=== PATIENT | male | born 1965 | race African-American/Black ===

== ENCOUNTER 2017-12-18 05:25 | Day surgery (SDC) | payer BC ==
[~2017-12-18] VITALS: Ht 188 cm; Wt 124.7 kg
--- NOTE | ~2017-12-18 | EKG ---
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
--- NOTE | ~2017-12-18 | O ---
[facility] [place] [address] OPERATIVE REPORT Name: KARIE COX Room #: 150-4 [facility]#: [id number] Admission: 12/18/17 Attend Phys: Regis Pearl MD Discharge: Date of : 69 Report #: [id number] THIS REPORT FOR: //name// CC: Filipe Pearl DATE OF SERVICE: 12/18/2017 PATIENT OF: Dr. Regis Pearl and Dr. Filipe Johnson. PREOPERATIVE DIAGNOSIS: Incarcerated umbilical hernia. POSTOPERATIVE DIAGNOSIS: Incarcerated umbilical hernia. PROCEDURE: Repair of an incarcerated umbilical hernia. SURGEON: Regis Pearl M.D. ANESTHESIA: Local IV sedation. DESCRIPTION OF PROCEDURE: The patient was brought to the operating room and placed on operative table in the supine position. Sequential compression devices were in place for DVT prophylaxis. There was no indication for preoperative antibiotics. The patient underwent IV sedation and the abdomen was then prepped and draped in a sterile fashion. Skin and subcutaneous tissue around the umbilicus was then infiltrated with 0.5% Marcaine and 1% Xylocaine in a 1:1 mixture. Transverse infraumbilical skin incision was then performed using a #15 scalpel blade. Hemostasis obtained using electrocautery. Dissection was carried down through the subcutaneous tissue and through the hernia sac using the electrocautery and the Metzenbaum scissors. The hernia sac was dissected free and opened and the incarcerated omentum was carefully reduced back into the abdomen, after lysing some adhesions to the hernia sac. The hernia sac was excised and sent as specimen to pathology. The fascial defect was closed easily, with no tension, using interrupted [id number] #1 Prolene sutures. The umbilicus was then tacked to the fascia using 2 simple interrupted 2-0 chromic sutures. Deep and superficial subcutaneous tissue was then reapproximated using simple interrupted 2-0 chromic sutures and the skin then closed with a running 4-0 subcuticular Vicryl stitch. The wound was then dressed with Dermabond, Telfa, 4 x 4 gauze, sponge and tape. The patient was then awakened from the IV sedation and taken to the recovery room awake, alert and in good condition. Estimated blood loss was less than 5 mL and the patient [address] [address] OPERATIVE REPORT Name: KARIE COX Room #: 150-4 [facility]..#: [id number] Admission: 12/18/17 Attend Phys: Regis Pearl MD Discharge: Date of : 69 Report #: [id number] tolerated procedure well. All sponge, lap and instrument counts correct times 2. By: [id number] 1023 Regis Pearl MD /nt
[~2017-12-18 05:25] MED LIST: BREO ELLIPTA 11 EACH INH; CATAPRES0.2 MG PO; COZAAR 50 MG TA50 M2 PO; HYDRALAZINE 5050 MG PO; HYDROCHLOROTHIA50 MG PO; IRON325 PO; K-DUR 20 MEQ T20 MEQ PO; LIPITOR 20 MG T20 M1 PO; MELATONIN5 M1 PO
[2017-12-18 07:29] LABS: HEMATOCRIT 34.2 % (42.0-52.0); HEMOGLOBIN 11.8 gm/dL (14.0-18.0); MCH 30.7 pg (26.0-34.0); MCHC 34.6 g/dL (28.0-37.0); MCV 88.7 fL (80.0-100.0); RBC 3.86 mil/uL (4.50-6.00); RDW 14.6 % (10.5-14.5); WBC 6.9 thou/uL (4.0-11.0)
[2017-12-18 07:41] LABS: CALCIUM 9.4 mg/dL (8.5-10.1); CREATININE 1.4 mg/dL (0.7-1.3)
[2017-12-18 08:26] VITALS: BP 125/75
[2017-12-18] MEDS ORDERED: NORCO 5-325 TA1 EACH PO (10:18)
[2017-12-18 10:35] VITALS: BP 125/75
== END 2017-12-18 11:00 | disposition home or self-care (01) ==
LOC: OR 05:25 → TBA 05:26 → OR 11:00
PROVIDERS: Surgery
DX: K42.0 Umbilical hernia with obstruction, without gangrene (principal); G47.30 Sleep apnea, unspecified; Z88.8 Allergy status to other drugs, medicaments and biological substances; Z68.35 Body mass index [BMI] 35.0-35.9, adult; I10 Essential (primary) hypertension; E78.5 Hyperlipidemia, unspecified; D64.9 Anemia, unspecified; Z98.890 Other specified postprocedural states
CPT/HCPCS: 50010; 50101; 50386; 50417; 54118; 56524; 56525; 56526; 62110; 62850; 70005